=== PATIENT | female | born 1930 ===

== ENCOUNTER 2019-07-01 01:15 | Observation (INO) | payer MEDICARE ==
--- NOTE | 2019-07-01 02:22 | XRay Report ---
CHEST 1 VIEW 1:43 AM INDICATION / CLINICAL INFORMATION: Dyspnea. COMPARISON: None available. FINDINGS: SUPPORT DEVICES: None. HEART / MEDIASTINUM: The heart size is mildly enlarged. There is mild prominence of the central pulmo nary vessels and interstitial lung markings. Mild bibasilar pleuroparenchymal opacity is present, gre ater on the left. LUNGS / PLEURA: No significant pulmonary or pleural abnormality. No pneumothorax. ADDITIONAL FINDINGS: No significant additional findings. IMPRESSION: Asymmetric pulmonary edema pattern. Signer Name: Naveen Avalos MD Signed: 07/01/2019 2:18 AM Workstation Name: [id number]
[2019-07-01] MEDS ORDERED: FUROSEMIDE 20 MG/2 ML INJ IV ONE (02:34)
--- NOTE | 2019-07-01 02:34 | Emergency Department Report ---
ED Shortness of Breath HPI - General Chief Complaint: Dyspnea/Respdistress Stated Complaint: SOB Time Seen by Provider: 07/01/19 01:41 Source: EMS Mode of arrival: Stretcher Limitations: Altered Mental Status - History of Present Illness Initial Comments: Patient is a 89-year-old female who has a past medical history of hypertension Alzheimer's dementia and is at assisted living is presenting with shortness of breath. Patient was noted to be breathing heavily and more rapid in her room. Paramedics were called to see the patient. Patient's 96% on room air according to paramedics the patient had O2 sat of 90% here in the emergency department. Blood pressure was elevated 190/92. Patient is unable to give accurate history of high while she's been short of breath. Has been no mention of fevers. In reviewing the information from the assisted living facility patient does not have a history of COPD or heart failure. - Related Data Allergies Allergy/AdvReac Type Severity Reaction Status Date / Time Unable to Assess Allergy Unverified 07/01/19 01:55 ED Review of Systems ROS: Stated complaint: SOB Other details as noted in HPI Comment: All other systems reviewed and negative ED Physical Exam - General Limitations: Altered Mental Status General appearance: alert, in no apparent distress - Head Head exam: Present: atraumatic, normocephalic - Eye Eye exam: Present: normal appearance, PERRL, EOMI - ENT ENT exam: Present: mucous membranes moist - Neck Neck exam: Present: normal inspection - Respiratory Respiratory exam: Present: normal lung sounds bilaterally, rales. Absent: respiratory distress, wheezes, rhonchi - Cardiovascular Cardiovascular Exam: Present: regular rate, normal rhythm, normal heart sounds. Absent: systolic murmur, diastolic murmur, rubs, gallop - GI/Abdominal GI/Abdominal exam: Present: soft, normal bowel sounds. Absent: distended, tenderness, guarding, rebound - Extremities Exam Extremities exam: Present: normal inspection - Back Exam Back exam: Present: normal inspection - Neurological Exam Neurological exam: Present: alert, oriented X3 - Psychiatric Psychiatric exam: Present: normal affect, normal mood - Skin Skin exam: Present: warm, dry, intact, normal color. Absent: rash ED Course Vital Signs 07/01/19 07/01/19 07/01/19 01:29 01:41 01:45 Temperature 97.6 F Pulse Rate 104 H 99 H 101 H Respiratory 25 H 25 H Rate Blood Pressure Blood Pressure 150/65 [Right] O2 Sat by Pulse 91 90 Oximetry 07/01/19 07/01/19 07/01/19 01:46 02:00 02:33 Temperature Pulse Rate 95 H 98 H Respiratory 24 Rate Blood Pressure 140/63 140/83 Blood Pressure [Right] O2 Sat by Pulse 95 95 Oximetry 07/01/19 03:00 Temperature Pulse Rate 76 Respiratory 22 Rate Blood Pressure 126/64 Blood Pressure [Right] O2 Sat by Pulse 96 Oximetry ED Medical Decision Making - Lab Data Result diagrams: 07/01/19 01:54 07/01/19 01:54 Lab Results 07/01/19 07/01/19 07/01/19 Range/Units 01:54 01:54 01:54 WBC 10.9 (4.5-11.0) K/mm3 RBC 4.03 (3.65-5.03) M/mm3 Hgb 11.3 (10.1-14.3) gm/dl Hct 34.4 (30.3-42.9) % MCV 85 (79-97) fl MCH 28 (28-32) pg MCHC 33 (30-34) % RDW 16.6 H (13.2-15.2) % Plt Count 221 (140-440) K/mm3 Lymph % (Auto) 8.1 L (13.4-35.0) % [place] % (Auto) 4.5 (0.0-7.3) % Eos % (Auto) 0.7 (0.0-4.3) % Baso % (Auto) 0.3 (0.0-1.8) % Lymph # 0.9 L (1.2-5.4) K/mm3 [place] # 0.5 (0.0-0.8) K/mm3 Eos # 0.1 (0.0-0.4) K/mm3 Baso # 0.0 (0.0-0.1) K/mm3 Seg Neutrophils % 86.4 H (40.0-70.0) % Seg Neutrophils # 9.4 H (1.8-7.7) K/mm3 PT 13.4 (12.2-14.9) Sec. INR 1.01 (0.87-1.13) APTT 26.7 (24.2-36.6) Sec. Sodium 141 (137-145) mmol/L Potassium 3.5 L (3.6-5.0) mmol/L Chloride 105.1 (98-107) mmol/L Carbon Dioxide 18 L (22-30) mmol/L Anion Gap 21 mmol/L BUN 16 (7-17) mg/dL Creatinine 0.9 (0.7-1.2) mg/dL Estimated GFR 59 ml/min BUN/Creatinine Ratio 18 % Glucose 220 H (65-100) mg/dL Calcium 8.8 (8.4-10.2) mg/dL Total Bilirubin 0.70 (0.1-1.2) mg/dL AST 18 (5-40) units/L ALT 12 (7-56) units/L Alkaline Phosphatase 89 (35-129) units/L Troponin T 0.015 (0.00-0.029) ng/mL NT-Pro-B Natriuret Pep 7846 H (0-900) pg/mL Total Protein 6.5 (6.3-8.2) g/dL Albumin 3.7 L (3.9-5) g/dL Albumin/Globulin Ratio 1.3 % Urine Bilirubin (Negative) Urine RBC (Auto) (0.0-6.0) /HPF U Epithel Cells (Auto) (0-13.0) /HPF 07/01/19 Range/Units 03:25 WBC (4.5-11.0) K/mm3 RBC (3.65-5.03) M/mm3 Hgb (10.1-14.3) gm/dl Hct (30.3-42.9) % MCV (79-97) fl MCH (28-32) pg MCHC (30-34) % RDW (13.2-15.2) % Plt Count (140-440) K/mm3 Lymph % (Auto) (13.4-35.0) % [place] % (Auto) (0.0-7.3) % Eos % (Auto) (0.0-4.3) % Baso % (Auto) (0.0-1.8) % Lymph # (1.2-5.4) K/mm3 [place] # (0.0-0.8) K/mm3 Eos # (0.0-0.4) K/mm3 Baso # (0.0-0.1) K/mm3 Seg Neutrophils % (40.0-70.0) % Seg Neutrophils # (1.8-7.7) K/mm3 PT (12.2-14.9) Sec. INR (0.87-1.13) APTT (24.2-36.6) Sec. Sodium (137-145) mmol/L Potassium (3.6-5.0) mmol/L Chloride (98-107) mmol/L Carbon Dioxide (22-30) mmol/L Anion Gap mmol/L BUN (7-17) mg/dL Creatinine (0.7-1.2) mg/dL Estimated GFR ml/min BUN/Creatinine Ratio % Glucose (65-100) mg/dL Calcium (8.4-10.2) mg/dL Total Bilirubin (0.1-1.2) mg/dL AST (5-40) units/L ALT (7-56) units/L Alkaline Phosphatase (35-129) units/L Troponin T (0.00-0.029) ng/mL NT-Pro-B Natriuret Pep (0-900) pg/mL Total Protein (6.3-8.2) g/dL Albumin (3.9-5) g/dL Albumin/Globulin Ratio % Urine Bilirubin Neg (Negative) Urine RBC (Auto) 3.0 (0.0-6.0) /HPF U Epithel Cells (Auto) < 1.0 (0-13.0) /HPF - EKG Data -: EKG Interpreted by [place] - Radiology Data Ordering Physician: CAMMIE MARTIN MD Date of Service: 07/01/19 Procedure(s): XR chest 1V ap Accession Number(s): [id number] cc: CAMMIE MARTIN MD Fluoro Time In Minutes: CHEST 1 VIEW 1:43 AM INDICATION / CLINICAL INFORMATION: Dyspnea. COMPARISON: None available. FINDINGS: SUPPORT DEVICES: None. HEART / MEDIASTINUM: The heart size is mildly enlarged. There is mild prominence of the central pulmonary vessels and interstitial lung markings. Mild bibasilar pleuroparenchymal opacity is present, greater on the left. LUNGS / PLEURA: No significant pulmonary or pleural abnormality. No pneumothorax. ADDITIONAL FINDINGS: No significant additional findings. IMPRESSION: Asymmetric pulmonary edema pattern. Signer Name: Naveen Avalos MD Signed: 07/01/2019 2:18 AM Workstation Name: [id number] - Medical Decision Making Vital Signs 07/01/19 07/01/19 07/01/19 01:29 01:41 01:45 Temperature 97.6 F Pulse Rate 104 H 99 H 101 H Respiratory 25 H 25 H Rate Blood Pressure Blood Pressure 150/65 [Right] O2 Sat by Pulse 91 90 Oximetry 07/01/19 07/01/19 07/01/19 01:46 02:00 02:33 Temperature Pulse Rate 95 H 98 H Respiratory 24 Rate Blood Pressure 140/63 140/83 Blood Pressure [Right] O2 Sat by Pulse 95 95 Oximetry 07/01/19 03:00 Temperature Pulse Rate 76 Respiratory 22 Rate Blood Pressure 126/64 Blood Pressure [Right] O2 Sat by Pulse 96 Oximetry Patient was started on 2 L of oxygen. O2 sats have improved. Patient given 20 Lasix for presumed congestive heart failure. Review of the patient's laboratory studies the BNP is elevated. There is bony edema on the chest x-ray. Patient to be admitted to the hospitalist service for further management. Critical Care Time: Yes (30) Critical care attestation.: If time is entered above; I have spent that time in minutes in the direct care of this critically ill patient, excluding procedure time. ED Disposition Clinical Impression: Hypoxia Acute congestive heart failure Qualifiers: Heart failure type: unspecified Qualified Code(s): I50.9 - Heart failure, unspecified Disposition: 09 OP ADMIT IP TO THIS HOSP Is pt being admited?: Yes Does the pt Need Aspirin: No Condition: Stable Time of Disposition: 03:56
[2019-07-01 03:14] LABS: Basophils % (Auto) 0.3 % (0.0-1.8); Eosinophils # (Auto) 0.1 K/mm3 (0.0-0.4); Eosinophils % (Auto) 0.7 % (0.0-4.3); Hematocrit 34.4 % (30.3-42.9); Hemoglobin 11.3 gm/dl (10.1-14.3); Lymphocytes # (Auto) 0.9 K/mm3 (1.2-5.4); Lymphocytes % (Auto) 8.1 % (13.4-35.0); Mean Corpuscular HGB Conc 33 % (30-34); Mean Corpuscular Volume 85 fl (79-97); Monocytes # (Auto) 0.5 K/mm3 (0.0-0.8); Monocytes % (Auto) 4.5 % (0.0-7.3); Platelet Count 221 K/mm3 (140-440); Red Blood Count 4.03 M/mm3 (3.65-5.03); Red Cell Distribution Width 16.6 % (13.2-15.2)
[2019-07-01 03:24] LABS: INR 1.01 (0.87-1.13); Partial Thromboplastin Time 26.7 Sec. (24.2-36.6)
[2019-07-01 03:41] LABS: Albumin 3.7 g/dL (3.9-5); Calcium 8.8 mg/dL (8.4-10.2)
[2019-07-01 03:51] LABS: Bacteria,Urine 1+ /HPF (Negative); Bilirubin,Urine NEG (Negative); Blood,Urine NEG (Negative); Color,Urine Yellow (Yellow); Urobilinogen,Urine < 2.0 mg/dL (<2.0)
[2019-07-01 09:09] VITALS: BP 140/71
[2019-07-01] MEDS ORDERED: ACETAMINOPHEN 325 MG TAB PO PRN (09:33)
[2019-07-01] MEDS ORDERED: ALBUTEROL 2.5 MG/3 ML NEBU IH PRN (09:33)
[2019-07-01] MEDS ORDERED: ONDANSETRON 4 MG/2 ML INJ IV PRN (09:33)
--- NOTE | 2019-07-01 09:37 | History and Physical Report ---
History of Present Illness Date of examination: 07/01/19 Date of admission: 07/01/19 04:50 Chief complaint: Shortness of breath with hypoxia History of present illness: Patient is an 88-year-old female past medical history of hypertension, Alzheimer's dementia, currently a [facility] facility who presented to the ED with complaint of breathing heavily and rapid in her room shortness of breath. Patient was noted to have 96% saturation on room air although paramedics had an O2 sat of 90% according to documentation with elevated blood pressure of 190/92. Unfortunately could not get any good information from the patient nevertheless on observing her she is ambulatory in the room with no complaints not requiring oxygen. EKG shows sinus rhythm rate of 78. [place] is normal. There several PACs. Left bundle-branch block. There are no obvious ST elevations or depressions. There are T-wave inversions lateral. The patient unfortunately is pleasantly confused and cannot provide adequate information. I did discuss with her son who mentions that the patient once in a while undergoes a panic attack. He feared that this may have been the case last night. Nevertheless I did inform him about the finding on chest x-ray. Past History Past Medical History: hypertension, hyperlipidemia, other (Alzheimer's dementia) Past Surgical History: Other Social history: no significant social history, full code Family history: no significant family history Medications and Allergies Allergies Allergy/AdvReac Type Severity Reaction Status Date / Time No Known Allergies Allergy Unverified 07/01/19 05:24 Home Medications Medication Instructions Recorded Confirmed Last Taken Type ALBUTEROL NEB's [Proventil 0.083% 2.5 mg IH Q4HRT PRN #30 nebu 07/01/19 Unknown Rx NEBS] Lisinopril [Zestril TAB] 2.5 mg PO QDAY #30 tab 07/01/19 Unknown Rx Potassium Chloride [K-Dur] 10 meq PO QDAY #10 tablet 07/01/19 Unknown Rx carvediloL [Coreg] 3.125 mg PO BID #60 tablet 07/01/19 Unknown Rx hydroCHLOROthiazide [HCTZ] 12.5 mg PO QDAY #30 capsule 07/01/19 Unknown Rx Active Meds: Active Medications Acetaminophen (Tylenol) 650 mg PO Q4H PRN PRN Reason: Pain MILD(1-3)/Fever >100.5/ROACH Albuterol (Proventil) 2.5 mg IH Q4HRT PRN PRN Reason: Shortness Of Breath Furosemide (Lasix) 40 mg IV BID@0600,1800 CHET Lisinopril (Zestril) 20 mg PO QDAY CHET Metoprolol Tartrate (Metoprolol) 25 mg PO BID CHET Ondansetron HCl (Zofran) 4 mg IV Q8H PRN PRN Reason: Nausea And Vomiting Pravastatin Sodium (Pravachol) 80 mg PO QHS CHET Sodium Chloride (Sodium Chloride Flush Syringe 10 Ml) 10 ml IV BID CHET Sodium Chloride (Sodium Chloride Flush Syringe 10 Ml) 10 ml IV PRN PRN PRN Reason: LINE FLUSH Review of Systems ROS unobtainable: due to mental status Exam - Physical Exam Narrative exam: VITAL SIGNS: Reviewed. GENERAL: The patient appears normally developed, Vital signs as documented. HEAD: No signs of head trauma. EYES: Pupils are equal. Extraocular motions intact. EARS: Hearing grossly intact. MOUTH: Oropharynx is normal. NECK: No adenopathy, no JVD. CHEST: Chest with clear breath sounds bilaterally. No wheezes, rales, or rhonchi. CARDIAC: Regular rate and rhythm. S1 and S2, without murmurs, gallops, or rubs. VASCULAR: No Edema. Peripheral pulses normal and equal in all extremities. ABDOMEN: Soft, non tender and non distended. No rebound or guarding, and no masses palpated. Bowel Sounds normal. MUSCULOSKELETAL: Good range of motion of all major joints. Extremities without clubbing, cyanosis or edema. NEUROLOGIC EXAM: Alert and oriented x 1. With cognitive decline. Dementia. No focal sensory or strength deficits. Speech normal. Follows commands. PSYCHIATRIC: Mood normal. SKIN: detail exam as documented in skin assessment - Constitutional Vitals: Temp Pulse Resp BP Pulse Ox 97.9 F 85 18 140/71 96 07/01/19 09:09 07/01/19 09:09 07/01/19 09:09 07/01/19 09:09 07/01/19 09:09 Results - Labs CBC & Chem 7: 07/01/19 01:54 07/01/19 01:54 Labs: Laboratory Last Values WBC 10.9 K/mm3 (4.5-11.0) 07/01/19 01:54 RBC 4.03 M/mm3 (3.65-5.03) 07/01/19 01:54 Hgb 11.3 gm/dl (10.1-14.3) 07/01/19 01:54 Hct 34.4 % (30.3-42.9) 07/01/19 01:54 MCV 85 fl (79-97) 07/01/19 01:54 MCH 28 pg (28-32) 07/01/19 01:54 MCHC 33 % (30-34) 07/01/19 01:54 RDW 16.6 % (13.2-15.2) H 07/01/19 01:54 Plt Count 221 K/mm3 (140-440) 07/01/19 01:54 Lymph % (Auto) 8.1 % (13.4-35.0) L 07/01/19 01:54 [place] % (Auto) 4.5 % (0.0-7.3) 07/01/19 01:54 Eos % (Auto) 0.7 % (0.0-4.3) 07/01/19 01:54 Baso % (Auto) 0.3 % (0.0-1.8) 07/01/19 01:54 Lymph # 0.9 K/mm3 (1.2-5.4) L 07/01/19 01:54 [place] # 0.5 K/mm3 (0.0-0.8) 07/01/19 01:54 Eos # 0.1 K/mm3 (0.0-0.4) 07/01/19 01:54 Baso # 0.0 K/mm3 (0.0-0.1) 07/01/19 01:54 Seg Neutrophils % 86.4 % (40.0-70.0) H 07/01/19 01:54 Seg Neutrophils # 9.4 K/mm3 (1.8-7.7) H 07/01/19 01:54 PT 13.4 Sec. (12.2-14.9) 07/01/19 01:54 INR 1.01 (0.87-1.13) 07/01/19 01:54 APTT 26.7 Sec. (24.2-36.6) 07/01/19 01:54 Sodium 141 mmol/L (137-145) 07/01/19 01:54 Potassium 3.5 mmol/L (3.6-5.0) L 07/01/19 01:54 Chloride 105.1 mmol/L (98-107) 07/01/19 01:54 Carbon Dioxide 18 mmol/L (22-30) L 07/01/19 01:54 Anion Gap 21 mmol/L 07/01/19 01:54 BUN 16 mg/dL (7-17) 07/01/19 01:54 Creatinine 0.9 mg/dL (0.7-1.2) 07/01/19 01:54 Estimated GFR 59 ml/min 07/01/19 01:54 BUN/Creatinine Ratio 18 % 07/01/19 01:54 Glucose 220 mg/dL (65-100) H 07/01/19 01:54 POC Glucose 119 (70-105) H 07/01/19 08:04 Calcium 8.8 mg/dL (8.4-10.2) 07/01/19 01:54 Total Bilirubin 0.70 mg/dL (0.1-1.2) 07/01/19 01:54 AST 18 units/L (5-40) 07/01/19 01:54 ALT 12 units/L (7-56) 07/01/19 01:54 Alkaline Phosphatase 89 units/L (35-129) 07/01/19 01:54 Troponin T 0.015 ng/mL (0.00-0.029) 07/01/19 01:54 NT-Pro-B Natriuret Pep 7846 pg/mL (0-900) H 07/01/19 01:54 Total Protein 6.5 g/dL (6.3-8.2) 07/01/19 01:54 Albumin 3.7 g/dL (3.9-5) L 07/01/19 01:54 Albumin/Globulin Ratio 1.3 % 07/01/19 01:54 Urine Color Yellow (Yellow) 07/01/19 03:25 Urine Turbidity Clear (Clear) 07/01/19 03:25 Urine pH 5.0 (5.0-7.0) 07/01/19 03:25 Ur Specific [place] 1.009 (1.003-1.030) 07/01/19 03:25 Urine Protein 30 mg/dl mg/dL (Negative) 07/01/19 03:25 Urine Glucose (UA) Neg mg/dL (Negative) 07/01/19 03:25 Urine Ketones Neg mg/dL (Negative) 07/01/19 03:25 Urine Blood Neg (Negative) 07/01/19 03:25 Urine Nitrite Neg (Negative) 07/01/19 03:25 Urine Bilirubin Neg (Negative) 07/01/19 03:25 Urine Urobilinogen < 2.0 mg/dL (<2.0) 07/01/19 03:25 Ur Leukocyte Esterase Neg (Negative) 07/01/19 03:25 Urine WBC (Auto) 2.0 /HPF (0.0-6.0) 07/01/19 03:25 Urine RBC (Auto) 3.0 /HPF (0.0-6.0) 07/01/19 03:25 U Epithel Cells (Auto) < 1.0 /HPF (0-13.0) 07/01/19 03:25 Urine Bacteria (Auto) 1+ /HPF (Negative) 07/01/19 03:25 Assessment and Plan Assessment and plan: Patient is an 88-year-old female past medical history of hypertension, Alzheimer's dementia, currently a resident at the [facility] in [facility] living facility who presented to the ED with complaint of breathing heavily and rapid in her room shortness of breath. Patient was noted to have 96% saturation on room air although paramedics had an O2 sat of 90% according to documentation with elevated blood pressure of 190/92. Unfortunately could not get any good information from the patient nevertheless on observing her she is ambulatory in the room with no complaints not requiring oxygen. EKG shows sinus rhythm rate of 78. [place] is normal. There several PACs. Left bundle-branch block. There are no obvious ST elevations or depressions. There are T-wave inversions lateral. The patient unfortunately is pleasantly confused and cannot provide adequate information. I did discuss with her son who mentions that the patient once in a while underg oes a panic attack. He feared that this may have been the case last night. Nevertheless I did inform him about the finding on chest x-ray. Shortness of breath likely secondary to pulmonary edema which could be secondary to underlying new onset CHF Essential hypertension Dementia Alzheimer type Anxiety/panic disorder Plan Initial plan is to admit the patient and this was done cardiology evaluated the patient echocardiogram was ordered after discussion with the son it was determined that patient would be more appropriately managed outpatient considering that she is clinically stable we did update medication including hydrochlorothiazide and the potassium replacement patient was hypokalemic. She will be followed by cardiology outpatient for an outpatient echocardiogram and optimization of medication. Advance Directives: Yes Plan of care discussed with patient/family: Yes
[2019-07-01] MEDS ORDERED: LISINOPRIL 20 MG TAB PO SCH (10:00)
[2019-07-01] MEDS ORDERED: METOPROLOL TARTRATE 25 MG TAB PO SCH (10:00)
--- NOTE | 2019-07-01 10:32 | Consultation ---
History of Present Illness Consult date: 07/01/19 Consult reason: congestive heart failure History of present illness: 89 year old female from a residential with a history of essential hypertension and dementia presenting with shortness of breath. Cardiology consult requested for new onset CHF. Patient is demented and currently in restraints cannot give any coherent history. Past History Past Medical History: hypertension, other (Dementia) Past Surgical History: No surgical history Social history: no significant social history Medications and Allergies Allergies Allergy/AdvReac Type Severity Reaction Status Date / Time No Known Allergies Allergy Unverified 07/01/19 05:24 Active Meds: Active Medications Acetaminophen (Tylenol) 650 mg PO Q4H PRN PRN Reason: Pain MILD(1-3)/Fever >100.5/ROACH Albuterol (Proventil) 2.5 mg IH Q4HRT PRN PRN Reason: Shortness Of Breath Furosemide (Lasix) 40 mg IV BID@0600,1800 CHET Lisinopril (Zestril) 20 mg PO QDAY CHET Metoprolol Tartrate (Metoprolol) 25 mg PO BID CHET Ondansetron HCl (Zofran) 4 mg IV Q8H PRN PRN Reason: Nausea And Vomiting Pravastatin Sodium (Pravachol) 80 mg PO QHS CHET Sodium Chloride (Sodium Chloride Flush Syringe 10 Ml) 10 ml IV BID CHET Sodium Chloride (Sodium Chloride Flush Syringe 10 Ml) 10 ml IV PRN PRN PRN Reason: LINE FLUSH Review of Systems ROS unobtainable: due to mental status Physical Examination Vital Signs Pulse Resp Pulse Ox 104 H 25 H 91 07/01/19 01:29 07/01/19 01:29 07/01/19 01:29 General appearance: no acute distress, well-nourished HEENT: Positive: PERRL, Mucus Membranes Moist Neck: Positive: neck supple, trachea midline Cardiac: Positive: Reg Rate and Rhythm, S1/S2. Negative: Audible Murmur Lungs: Positive: clear to auscultation, Normal Breath Sounds Neuro: Positive: Grossly Intact. Negative: Other (Demented cognitive impairment) Abdomen: Positive: Soft, Active Bowel Sounds. Negative: Tender, Distended Female genitourinary: deferred Skin: Positive: Clear Incision: Cardiac Cath Site Musculoskeletal: No Pain, Normal Range of Motion Extremities: Present: normal. Absent: edema Results 07/01/19 01:54 07/01/19 01:54 Cardiac Enzymes 07/01/19 Range/Units 01:54 AST 18 (5-40) units/L Coagulation 07/01/19 Range/Units 01:54 PT 13.4 (12.2-14.9) Sec. INR 1.01 (0.87-1.13) APTT 26.7 (24.2-36.6) Sec. CBC 07/01/19 Range/Units 01:54 WBC 10.9 (4.5-11.0) K/mm3 RBC 4.03 (3.65-5.03) M/mm3 Hgb 11.3 (10.1-14.3) gm/dl Hct 34.4 (30.3-42.9) % Plt Count 221 (140-440) K/mm3 Lymph # 0.9 L (1.2-5.4) K/mm3 [place] # 0.5 (0.0-0.8) K/mm3 Eos # 0.1 (0.0-0.4) K/mm3 Baso # 0.0 (0.0-0.1) K/mm3 Comprehensive Metabolic Panel 07/01/19 Range/Units 01:54 Sodium 141 (137-145) mmol/L Potassium 3.5 L (3.6-5.0) mmol/L Chloride 105.1 (98-107) mmol/L Carbon Dioxide 18 L (22-30) mmol/L BUN 16 (7-17) mg/dL Creatinine 0.9 (0.7-1.2) mg/dL Glucose 220 H (65-100) mg/dL Calcium 8.8 (8.4-10.2) mg/dL AST 18 (5-40) units/L ALT 12 (7-56) units/L Alkaline Phosphatase 89 (35-129) units/L Total Protein 6.5 (6.3-8.2) g/dL Albumin 3.7 L (3.9-5) g/dL EKG interpretations - Telemetry EKG Rhythm: Sinus Rhythm Assessment and Plan 1. Congestive heart failure 2. Essential hypertension 3. Dementia Alzheimer's type 4. COPD Plan. Patient currently stable we'll start Nitrol ointment for pre-and afterload reduction. Check TSH level. Check echocardiogram. Patient is not a candidate for invasive cardiac management.
[2019-07-01] MEDS ORDERED: SODIUM BICARBONATE 650 MG TAB PO SCH (11:00)
[2019-07-01] MEDS ORDERED: NITROGLYCERIN 2% OINT 1 GM TP SCH (14:00)
--- NOTE | 2019-07-01 15:51 | Short Stay Summary ---
Short Stay Documentation Date of service: 07/01/19 Narrative H&P: Patient is an 88-year-old female past medical history of hypertension, Alzheimer's dementia, [facility] who presented to the ED with complaint of breathing heavily and rapid in her room shortness of breath. Patient was noted to have 96% saturation on room air although paramedics had an O2 sat of 90% according to documentation with elevated blood pressure of 190/92. Unfortunately could not get any good information from the patient nevertheless on observing her she is ambulatory in the room with no complaints not requiring oxygen. EKG shows sinus rhythm rate of 78. [place] is normal. There several PACs. Left bundle-branch block. There are no obvious ST elevations or depressions. There are T-wave inversions lateral. The patient unfortunately is pleasantly confused and cannot provide adequate information. I did discuss with her son who mentions that the patient once in a while undergoes a panic attack. He feared that this may have been the case last night. Nevertheless I did inform him about the finding on chest x-ray. Plan Initial plan is to admit the patient and this was done cardiology evaluated the patient echocardiogram was ordered after discussion with the son it was determined that patient would be more appropriately managed outpatient considering that she is clinically stable we did update medication including hydrochlorothiazide and the potassium replacement patient was hypokalemic. She will be followed by cardiology outpatient for an outpatient echocardiogram and optimization of medication. Shortness of breath l pulmonary edema new onset CHF Presumed diastolic Essential hypertension Dementia Alzheimer type Anxiety/panic disorder - History Past Medical History: hypertension, hyperlipidemia, other (Alzheimer's dementia) Past Surgical History: Other Social history: no significant social history, full code - Allergies and Medications Current Medications: Allergies No Known Allergies Allergy (Unverified 07/01/19 05:24) Home Medications Medication Instructions Recorded Confirmed Last Taken Type ALBUTEROL NEB's [Proventil 0.083% 2.5 mg IH Q4HRT PRN #30 nebu 07/01/19 Unknown Rx NEBS] Lisinopril [Zestril TAB] 2.5 mg PO QDAY #30 tab 07/01/19 Unknown Rx Potassium Chloride [K-Dur] 10 meq PO QDAY #10 tablet 07/01/19 Unknown Rx carvediloL [Coreg] 3.125 mg PO BID #60 tablet 07/01/19 Unknown Rx hydroCHLOROthiazide [HCTZ] 12.5 mg PO QDAY #30 capsule 07/01/19 Unknown Rx - Physical exam General appearance: no acute distress HEENT: Atraumatic Lungs: Clear to auscultation Breasts: deferred Heart: Regular rate, Normal S1, Normal S2, No murmurs Gastrointestinal: normal Female Genitourinary: deferred Rectal Exam: deferred Extremities: no ischemia, pulses intact, pulses symmetrical, No edema, normal temperature, normal color, Full ROM Neurological: Normal gait, Normal speech, Strength at 5/5 X4 ext, Normal tone - Disposition Condition at discharge: Stable Disposition: - TO HOME OR SELFCARE - Discharge Diagnoses (1) Acute congestive heart failure Status: Acute Qualifiers: Heart failure type: unspecified Qualified Code(s): I50.9 - Heart failure, unspecified (2) Hypoxia Status: Acute Short Stay Discharge Plan Follow up with: RAFAELA GALINDO MD [Staff Physician] - 7 Days PRIMARY CARE, [Primary Care Provider] - 7 Days Prescriptions: carvediloL [Coreg] 3.125 mg PO BID #60 tablet hydroCHLOROthiazide [HCTZ] 12.5 mg PO QDAY #30 capsule Potassium Chloride [K-Dur] 10 meq PO QDAY #10 tablet ALBUTEROL NEB's [Proventil 0.083% NEBS] 2.5 mg IH Q4HRT PRN #30 nebu PRN Reason: Shortness Of Breath Lisinopril [Zestril TAB] 2.5 mg PO QDAY #30 tab
[2019-07-01] MEDS ORDERED: FUROSEMIDE 40 MG/4 ML INJ IV SCH (18:00)
[2019-07-01] MEDS ORDERED: PRAVASTATIN 80 MG TAB PO SCH (22:00)
== END 2019-07-01 12:33 | disposition home or self-care (01) ==
LOC: ED 01:15 → 4A 04:50 → INTOOBSV 04:50
PROVIDERS: ADMIT Internal Medicine Geriatric Medicine; ATTEND Internal Medicine
DX: J44.9 Chronic obstructive pulmonary disease, unspecified (principal); I11.0 Hypertensive heart disease with heart failure; I50.9 Heart failure, unspecified; G30.9 Alzheimer's disease, unspecified; F02.80 Dementia in other diseases classified elsewhere, unspecified severity, without behavioral disturbance, psychotic disturbance, mood disturbance, and anxiety; Z79.899 Other long term (current) drug therapy; I44.7 Left bundle-branch block, unspecified; F41.0 Panic disorder [episodic paroxysmal anxiety]; R09.02 Hypoxemia
CPT/HCPCS: 36415; 71045; 80053; 81001; 82962; 83880; 84484; 85025; 85610; 85730; 87040; 93005; 93010; 96374; 96375; 99291; G0378; J1940